=== PATIENT | male | born 1980 | race Caucasian/White ===

== ENCOUNTER 2022-10-05 01:50 | Inpatient (IN) | payer MEDICAID, OTHER ==
[~2022-10-05] VITALS: Ht 188 cm; Wt 88.5 kg
[2022-10-05] MEDS ORDERED: LORAZEPAM INJ 2 MG/ML VIAL ONE ×2 (02:06→06:39)
[2022-10-05] MEDS ORDERED: ACETAMINOPHEN ES 500 MG TABLET ONE (02:07)
--- NOTE | 2022-10-05 02:07 | NUR ---
URINE COLLECTED AND SENT TO LAB
--- NOTE | 2022-10-05 02:09 | NUR ---
BIBS FOR C/O SEIZURE, POSSIBLE FROM ALCOHOL WITHDRAW. PATIENT ALERT AND ORIENTED X3. AMBULATORY WITH NON LABORED BREATHING IN BED 12 ON MONITOR AND POX. SEEN AND EVALUATED BY MD AT TRIAGE.
[2022-10-05] MEDS: ACETAMINOPHEN ES 500 MG TABLET PO ONE ×2 (02:11→03:42)
--- NOTE | 2022-10-05 02:12 | NUR ---
COVID SWAB DONE AND SENT TO LAB
--- NOTE | 2022-10-05 02:12 | NUR ---
BLOOD COLLECTED AND SENT TO LAB
--- NOTE | 2022-10-05 02:13 | NUR ---
SEIZURE PRECAUTIONS DONE.
--- NOTE | 2022-10-05 02:13 | NUR ---
EMT AT BEDSIDE FOR EKG.
[2022-10-05] MEDS ORDERED: IV NS 0.9% 1,000 ML BAG IV ONE (02:30)
[2022-10-05] MEDS ORDERED: LORAZEPAM INJ 2 MG/ML VIAL IVP ONE (02:30)
[2022-10-05 03:27] LABS: BASOPHILS # (AUTO) 0.1 K/uL (0.0-0.2); BASOPHILS % (AUTO) 0.8 % (0.0-2.0); EOSINOPHILS % (AUTO) 2.6 % (0.0-6.0); HEMATOCRIT 33 % (39-51); HEMOGLOBIN 10.7 g/dL (13.5-17.5); LYMPHOCYTES # (AUTO) 1.5 K/uL (0.8-4.8); MEAN CORPUSCULAR HGB CONC 33 g/dl (31.0-36.0); MEAN CORPUSCULAR VOLUME 85 fL (80-96); MONOCYTES # (AUTO) 0.4 K/uL (0.1-1.30); NEUTROPHILS # (AUTO) 4.6 K/uL (1.8-8.9); NEUTROPHILS % (AUTO) 68.6 % (43.0-81.0); PLATELET COUNT (AUTO) 212 K/uL (150-450); RED BLOOD CELL COUNT(AUTO) 3.86 MIL/uL (4.5-6.0); WHITE BLOOD COUNT (AUTO) 6.7 K/uL (4.3-11.0)
[2022-10-05] MEDS ORDERED: KETOROLAC TROMETHAMINE 15 MG/ML VIAL ONE (03:30)
[2022-10-05 03:39] LABS: CALCIUM, SERUM 8.9 mg/dL (8.5-10.1); CARBON DIOXIDE 28 mmol/L (21-32); CHLORIDE 101 mmol/L (98-107); CREATININE 0.7 mg/dL (0.6-1.3); GLUCOSE 98 mg/dL (74-106); POTASSIUM 3.6 mmol/L (3.5-5.1); SODIUM SERUM 137 mmol/L (136-145); UREA NITROGEN, BLOOD 12 mg/dL (7-18)
--- NOTE | 2022-10-05 03:43 | NUR ---
PT TAKEN TO CT VIA [facility]
[2022-10-05 03:46] LABS: ALANINE AMINOTRANSFERASE 22 U/L (12-78); ALBUMIN 3.8 g/dL (3.4-5.0); ALCOHOL, BLOOD < 3 mg/dL (0-0); ALKALINE PHOSPHATASE 102 U/L (46-116); ASPARTATE AMINOTRANSFERASE 21 U/L (15-37); BILIRUBIN,DIRECT 0.1 mg/dL (0.0-0.2); BILIRUBIN,TOTAL 0.4 mg/dL (0.2-1.0); TOTAL PROTEIN, SERUM 7.3 g/dL (6.4-8.2)
--- NOTE | 2022-10-05 03:52 | NUR ---
PT RETURNED TO ER BED [address]
[2022-10-05] MEDS ORDERED: KETOROLAC TROMETHAMINE INJ 60 MG/2 ML VIAL IM ONE (04:00)
--- NOTE | 2022-10-05 06:08 | NUR ---
DR. EMMA RICO ON PHONE CALL WITH DR. FLASH RICO ADMITTING
[2022-10-05] MEDS ORDERED: ONDANSETRON HCL/PF 4 MG/2 ML VIAL IVP PRN (06:30)
[2022-10-05] MEDS ORDERED: MAGNESIUM HYDROXIDE 30 ML UDC PO PRN (06:30)
[2022-10-05] MEDS ORDERED: ZOLPIDEM TARTRATE 5 MG TABLET PO PRN (06:30)
[2022-10-05] MEDS ORDERED: KETOROLAC TROMETHAMINE INJ 30 MG/ML VIAL IV ONE (06:30)
[2022-10-05] MEDS ORDERED: MAG HYDROX/AL HYDROX/SIMETH 30 ML UDC PO PRN (06:30)
[2022-10-05] MEDS ORDERED: Z GUARD REMEDY 4 OZ OINT TP PRN (06:30)
[2022-10-05] MEDS ORDERED: LORAZEPAM INJ 2 MG/ML VIAL IV PRN (06:30)
--- NOTE | 2022-10-05 07:46 | NUR ---
got bed 113
--- NOTE | 2022-10-05 07:53 | NUR ---
ROOM 115. PT REPORT GIVEN TO AINSLEY COAMPO
--- NOTE | 2022-10-05 08:20 | NUR ---
PT TRANSFERRED TO 115 VIA [facility] ACLS PROTOCOL. WARM HANDOFF GIVEN TO AINSLEY OCAMPO.
--- NOTE | 2022-10-05 08:40 | NUR ---
rn open note PATIENT WAS TRANSFERRED FROM ER , WITH PRIMARY DIAGNOSIS OF ALCOHOL AND METHADONE WITHDRAWAL .PATIENT REPORT THAT HE HAD SEIZURES AT HOME , ON SEIZURES PRECAUTIONS .PATIENT HAS BICUSPID VALVE DISORDER , ALERT , ORIENTED TIMES 4, ANXIOUS .HAS TANIKA MIDLINE WITH 1/2 NS D5 RUNNING AT 75 ML/HR , SKIN INTACT .PATIENT IS AMBULATORY BUT REQUIRES ASSISTANCE DUE TO WEAK AND ON SEIZURES PRECAUTIONS .PATIENT IS ON ROOM AIR , TOLERATING WELL C/ O GENERALIZED PAIN MORPHINE IM ADMINISTERED .BED IS AT LOWEST POSITION , BED SIDE RAILS ARE UP , BED ALARM IS ON , CALL LIGHT WITHIN REACH , WILL CONTINUE TO MONITOR
[2022-10-05] MEDS: LORAZEPAM INJ 2 MG/ML VIAL IV PRN ×3 (08:57→18:58)
[2022-10-05] MEDS: CHLORDIAZEPOXIDE HCL 25 MG CAPSULE PO SCH ×3 (08:58→16:11)
[2022-10-05] MEDS: IV D5/0.45 NACL 1,000 ML IV PRN (09:03)
[2022-10-05] MEDS: ACETAMINOPHEN 325 MG TABLET PO PRN (11:10)
[2022-10-05] MEDS: MORPHINE SULFATE INJ 4 MG/ML DISP.SYRIN IM PRN ×2 (11:49→16:05)
[2022-10-05 12:16] VITALS: BP 144/82
[2022-10-05 16:13] VITALS: BP 135/84
[2022-10-05] MEDS ORDERED: HYDROCODONE/APAP 5/325MG TABLET PO PRN (17:00)
--- NOTE | 2022-10-05 18:28 | NUR ---
RN CLOSING NOTE PATIENT ALERT , ORIENTED TIMES 4, ANXIOUS .HAS TANIKA MIDLINE WITH 1/2 NS D5 RUNNING AT 75 ML/HR , SKIN INTACT .PATIENT IS AMBULATORY BUT REQUIRES ASSISTANCE DUE TO WEAK AND ON SEIZURES PRECAUTIONS .PATIENT IS ON ROOM AIR , TOLERATING WELL C/ O GENERALIZED PAIN MORPHINE AND ATIVAN ADMINISTERED NEEDED .ALL NEEDS WERE MET .BED IS AT LOWEST POSITION , BED SIDE RAILS ARE UP , BED ALARM IS ON , CALL LIGHT WITHIN REACH , WILL ENDORSE BENCH HAND MACHINE NURSE TO FALLOW POC.
[2022-10-05 20:00] VITALS: BP 124/77
--- NOTE | 2022-10-05 21:00 | NUR ---
INFORMED MORALES PERES PRACTICE REPRESENTATIVE THAT PT IS REQUESTING THE MORPHINE IV INSTEAD IM, PER PT MORPHINE IS NOT EFFECTIVE INTRAMUSCULAR, PER JA OK TO CHANGE INTRAVENOUS ROUTE, ORDER NOTED AND CARRIED OUT.
[2022-10-05] MEDS: MORPHINE SULFATE INJ 4 MG/ML DISP.SYRIN IV PRN (22:10)
[2022-10-05 23:33] VITALS: BP 145/79
[2022-10-06] MEDS ORDERED: MORPHINE SULFATE INJ 4 MG/ML DISP.SYRIN IV PRN
[2022-10-06] MEDS: LORAZEPAM INJ 2 MG/ML VIAL IV PRN ×5 (00:15→20:29)
[2022-10-06] MEDS: MORPHINE SULFATE INJ 4 MG/ML DISP.SYRIN IV PRN ×4 (02:09→20:19)
[2022-10-06 04:00] VITALS: BP 106/69
--- NOTE | 2022-10-06 04:40 | NUR ---
This note is to provide clarification that this patient has been medicated with ativan twice within the casino shift manager. In verifying the previous dose prior to the second administration, it was noted that the first dose did not register. The charge nurse was made aware and it was verified with the patient that he, indeed received two doses of ativan. It was scanned, but for whatever reason was not saved.
[2022-10-06 06:40] LABS: BASOPHILS % (AUTO) 0.8 % (0.0-2.0); EOSINOPHILS % (AUTO) 8.5 % (0.0-6.0); HEMATOCRIT 32 % (39-51); HEMOGLOBIN 10.4 g/dL (13.5-17.5); LYMPHOCYTES # (AUTO) 1.9 K/uL (0.8-4.8); LYMPHOCYTES % (AUTO) 36.3 % (20.0-44.0); MEAN CORPUSCULAR HGB CONC 33 g/dl (31.0-36.0); MEAN CORPUSCULAR VOLUME 86 fL (80-96); MONOCYTES # (AUTO) 0.5 K/uL (0.1-1.30); MONOCYTES % (AUTO) 9.6 % (2.0-12.0); NEUTROPHILS # (AUTO) 2.4 K/uL (1.8-8.9); NEUTROPHILS % (AUTO) 44.8 % (43.0-81.0); PLATELET COUNT (AUTO) 201 K/uL (150-450); RED BLOOD CELL COUNT(AUTO) 3.74 MIL/uL (4.5-6.0); WHITE BLOOD COUNT (AUTO) 5.2 K/uL (4.3-11.0)
[2022-10-06 06:43] LABS: CALCIUM, SERUM 8.5 mg/dL (8.5-10.1); CREATININE 0.7 mg/dL (0.6-1.3); PHOSPHORUS 5.1 mg/dL (2.5-4.9); POTASSIUM 3.9 mmol/L (3.5-5.1)
[2022-10-06 07:11] LABS: THYROID STIMULATING HORMONE 2.753 uIU/mL (0.358-3.74)
[2022-10-06 08:00] VITALS: BP 106/65
--- NOTE | 2022-10-06 08:00 | NUR ---
RN OPENING NOTE PATIENT IN BED, ORIENTED TIMES 4, PRIMARY DIAGNOSIS OF ALCOHOL AND METHADONE WITHDRAWAL. REPORTED SEIZURES AT HOME, ON SEIZURES PRECAUTIONS. PATIENT HAS A HX OF BICUSPID VALVE DISORDER, ALERT, ANXIOUS. TANIKA MIDLINE WITH 1/2 NS D5 RUNNING AT 75 ML/HR, FLUSHES WELL, SKIN INTACT, CHANGED THE DRESSING ON MIDLINE SITE. PATIENT IS AMBULATORY BUT REQUIRES ASSISTANCE DUE TO WEAKNESS. O2 98% ON ROOM, NO SOB. BED IS AT LOWEST POSITION , BED SIDE RAILS ARE UP , BED ALARM IS ON , CALL LIGHT WITHIN REACH , WILL CONTINUE TO MONITOR
[2022-10-06] MEDS: CHLORDIAZEPOXIDE HCL 25 MG CAPSULE PO SCH ×3 (08:50→16:04)
[2022-10-06] MEDS ORDERED: METH10TA2 PO (09:49)
--- NOTE | 2022-10-06 09:50 | NUR ---
PT COMPLAINED ON GENERALIZED PAIN 8 OUT OF 10. MORPHINE 4MG IV ADMINISTERED.
--- NOTE | 2022-10-06 10:29 | NUR ---
PATIENTs CONDITION ACCESSED 30 MIN AFTER MORPHINE ADMINISTRATION, NO PAIN AT THIS TIME, NO SOB. WILL CONTINUE TO MONITOR.
[2022-10-06 12:00] VITALS: BP 134/71
[2022-10-06 16:00] VITALS: BP 116/65
[2022-10-06] MEDS: IV D5/0.45 NACL 1,000 ML IV PRN (17:52)
--- NOTE | 2022-10-06 18:35 | NUR ---
GOT A PHONE PAUL FROM LAB OF THE [facility] REGARDING FINALIZED RESULT. PATIENTS RIGHT NASAL SWAB CAME OUT POSITIVE FOR MRSA. DOCTOR NOTIFIED, GOT ORDER FOR BACTROBAN OINTMENT.
--- NOTE | 2022-10-06 18:59 | NUR ---
FILLER MACHINE OPERATOR NOTE PATIENT IN BED, ALL NEEDS ATTENDED. O2 SATURATION 96% ON RA, NO SOB NOTED AT THIS TIME. BED LOCKED AND IN LOWEST POSITION, CALL LIGHT WITHIN REACH, SAFETY MEASURE IN PLACE. Addendum: 10/06/22 at 1907 by MOOKIE LAWRENCE RN ON TELE MONITOR, PATIENT HAD NORMAL SR IN 90.
--- NOTE | 2022-10-06 19:24 | NUR ---
RN OPENING NOTE; RECEIVED PT IN BED AAOX4 CARRIE WELL ON RM AIR SATTING 98%.NO SIGN SOB/DISTRESS NOTED,IV SITE ON RU ML WITH D5 1/2 NS 75ML/HR.SAFETY MEASURE IN PLACE.CALL LIGHT WITHIN REACH.WILL CONTINUE TO MONITOR.
[2022-10-06] MEDS: MUPIROCIN OINT 2% 22 GM TUBE NS SCH (20:26)
--- NOTE | 2022-10-06 20:35 | NUR ---
rn note; patient complained of generalize body pain 06/05,prn morphine 4mg,was given,pt aslo asking ativan 2mg for seizure.was given.
[2022-10-06 22:00] VITALS: BP 106/68
[2022-10-07] VITALS (8 sets, daily range): BP systolic 106–123; BP diastolic 63–81
[2022-10-07] MEDS: MORPHINE SULFATE INJ 4 MG/ML DISP.SYRIN IV PRN ×5 (01:05→23:45)
[2022-10-07] MEDS: LORAZEPAM INJ 2 MG/ML VIAL IV PRN ×4 (01:05→22:16)
--- NOTE | 2022-10-07 01:15 | NUR ---
rn note; patient complained of generalize body pain 06/05,prn morphine 4mg,was given,pt aslo asking ativan 2mg for seizure.was given.
[2022-10-07] MEDS: IV D5/0.45 NACL 1,000 ML IV PRN ×2 (04:58→20:48)
--- NOTE | 2022-10-07 06:07 | NUR ---
rn note; patient complained of generalize body pain 06/05,prn morphine 4mg,was given,pt aslo asking ativan 2mg for seizure.was given.
--- NOTE | 2022-10-07 06:17 | NUR ---
RN CLOSING NOTE; PATIENT IN BED AAOX4,ABLE TO MAKE NEEDS KNOWN, CARRIE WELL ON RM AIR,NO SIGN SOB/DISTRESS NOTED,IV SITE ON TANIKA ML WITH D5 1/2 NS 75ML/HR.DUE MEDS GIVEN ORDER,ALL NEDS ATTENDED,PT ROUTINELY ASKING MORPHINE AND ATIVAN,SAFETY MEASURE IN PLACE.CALL LIGHT WITHIN REACH.WILL ENDORSED TO NEXT SHIFT.
--- NOTE | 2022-10-07 07:36 | NUR ---
RN OPENING NOTE PATIENT IN BED, ORIENTED TIMES 4, PRIMARY DIAGNOSIS OF ALCOHOL AND METHADONE WITHDRAWAL. REPORTED SEIZURES AT HOME, ON SEIZURES PRECAUTIONS. PATIENT HAS A HX OF BICUSPID VALVE DISORDER. PT ALERT, ANXIOUS, C/O GENERALIZED PAIN, LAST MORPHINE DOSE, PER OUTSIDE SALES ACCOUNT EXECUTIVE NURSE, WAS AT 6AM. TANIKA MIDLINE WITH 1/2 NS D5 RUNNING AT 75 ML/HR, FLUSHES WELL, SKIN INTACT. PTs NOSTRIL SWAB CAME OUT POSITIVE FOR MRSA YESTERDAY, BACTROBAN OINTMENT ORDERED. PATIENT IS AMBULATORY BUT REQUIRES ASSISTANCE DUE TO WEAKNESS. O2 96% ON ROOM AIR, NO SOB. BED IS AT LOWEST POSITION , BED SIDE RAILS ARE UP , BED ALARM ON , CALL LIGHT WITHIN REACH , WILL CONTINUE TO MONITOR
[2022-10-07] MEDS: CHLORDIAZEPOXIDE HCL 25 MG CAPSULE PO SCH ×3 (09:05→17:16)
[2022-10-07] MEDS: MUPIROCIN OINT 2% 22 GM TUBE NS SCH ×2 (09:05→20:24)
--- NOTE | 2022-10-07 12:07 | NUR ---
SS Note: SS Consult requested for alcohol & bridge rehab referrals. The pt. is a 41-year-old male pt. who was admitted to [facility] due to alcohol withdrawal per EMR. Upon SS consult, the pt. is Alert & Oriented x 4 and makes good eye contact. The pt. appears unkempt. Pt. has depressed mood & affect. Pt.s speech is clear and thought process is WNL. Pt. remained calm & cooperative throughout interview. Pt. denies SI/HI and states denies hallucinations. LIZZETH explored pt.s living situation. Per pt. he resides at home [facility] [address]; TEL: [phone]]. SW explored pt.s drug & ETOH use. Pt. states he quit methadone on 10/03/2022 and states he drinks 1.75 liters of vodka daily for the past 30 years. SW offered pt. referral to rehab facility and pt. accepted resources. SW provided emotional support and provided education on alcohol dependence. Per pt. he has a Hx. of schizoaffective disorder and is non-compliant with medications prescribed to him in the past. The pt. stated he is ambulatory and independent with all his ADLs. Pt. states he does not receive any financial assistance. Plan: LIZZETH provided pt. with the following addiction resources and pt. accepted them. LIZZETH provided pt. with the following MAT resources : [facility]: [address] [place] [address] Intake hours: 5:45am9:00am, walk-ins Tuesday, Tuesday, [facility]: [address] [place] [address] Intake hours: 5:45am12:30pm, Tuesday and [facility]: [address] [place] [address] Intake hours: 8:00am2:00pm, Tuesday through Tuesday Pt. accepted the resources and stated he will use them for rehab and is still deciding if he wants to be back on Methadone. Pt. stated he would like for a cab to be called vias his insurance for transportation back home [Zenaida Samson e. [facility] [address]; TEL: [phone]].LIZZETH will notify CM. LIZZETH provided pt. witht he following addiction resources and pt. accepted them: ADDICTION RESOURCES For Drugs and Alcohol [facility] sober living Referrals For Rehabilitation once sober Address:[address] [place] [address] [facility] [address] [place] [address] Detox/residential [facility] Substance Abuse Helpline ([facility] RE[facility]AB) Outpatient, residential treatment, recovery support for youth/adults [facility] www.Six Deg[employer] of Data [facility] Teen programs for drug/alcohol education and support Yossi Duong Holt. Program for adults, sliding scale provides support and education NikkieYOOSE www.[facility].org [place]; Detox/residential treatment programs; transition to sober living Cri[facility]Help www.cri-help.org [place]; Outpatient and residential treatment programs; transition to sober living [facility] TEL: [phone] [facility] Drug Abuse [facility] [place]; Outpatient education and supportive programs for teens and adults [place] [facility] www.[facility] no.1y.org [facility]; Residential treatment and work program for females only [place] www.[facility].org [place]: Outpatient/residential treatment program for teens and young adults [facility] www.[facility].org [place] Detox, inpatient, outpatient for adults and youth [facility], [facility]. [place]; Outpatient programs and referrals to community residential programs. Alcoholics Anonymous -sfv information and meeting and scheduleswww.aa-intergroup.org Fm-Pcrr-Rizjhav https://bakari-kevin.org/ [place] support groups for family of alcoholics. Marijuana Anonymous www.madistrict6.org -SFV listing of meetings Narcotics Anonymous www.na.org SOBER LIVING RESOURCES [facility] www.soberhousing.net A non-profit agency that provides resources to recovery and sober living homes throughout [place], [place], [facility] Sober Living Homes: A Work in Progress, [facility] Recovery Advocates, [place] [facility] Womens Sober Living Homes: [facility] [phone] [place], [place] [facility] Coed Sober Living Homes: [facility]--Outpatient [facility] [place] [address] [facility] [place] [address] (Specializes in in-depth psychotherapy for emotional distress: anxiety, depression, interpersonal conflicts, life transitions, childhood abuse) [facility] [address] [place] [address] (Assist with solving problem marital difficulties, separation & divorce, aging parents, & grief, chronic & terminal illness) [facility] [address] [place] [address] (Deal with loss & grief, anxiety, marital difficulties) Homebound/Mental Health Services [address] [facility] [address] [place] [address] (Provide in-home mental services to people who are incapable of leaving their homes) Organization for Needs of the Elderly Senior Service/Resource Center [address] [place] [address] [facility] [address] [place], [place] [id number] Mental Health Services Mely Mendes [address] [place] [address] Services: Outpatient therapy for children, teens, young adults, adults, older adults, and families; Psychiatric services, medication support Psychiatric Outpatient Services [facility] Partial Hospitalization and Intensive Outpatient Program (Managed Care and [place] Only)[address] [facility] [phone] [facility] Partial Hospitalization and Outpatient [address] [place], [place] [phone] [facility] Mental Health [place] Jay[address] [facility]. [address] [place], [place] [phone] [facility] Partial Hospitalization and Outpatient Cxviten[address] [place], [phone] Crisis and Hotline Telephone Numbers 24-Hour service unless stated [place] Crisis Hotlines: [facility] Mental Health/Crisis Line........[phone] Suicide Prevention Center (24 Hours).......[phone] Suicide Prevention Crisis Center.......[phone] (24 Hours) Assaults Against Women Hotline.........302.740.6904 (24 Hours -- [facility]) Women and Children Crisis Halfway...........[phone] (24 Hours) Child Abuse Hotline............907.713.8331 [facility] of Childrens Services Rape Treatment Center (24 Hours)..........[phone] Alcoholics Anonymous (24 Hours)..........[phone] Cocaine Anonymous (24 Hours)............628.863.8896 Narcotics Anonymous (24 Hours)..........527-104-0666 Tiffany Esparza [facility] [address], [place] [address]
[2022-10-07] MEDS: ACETAMINOPHEN 325 MG TABLET PO PRN (18:07)
--- NOTE | 2022-10-07 19:17 | NUR ---
RN NOTE PATIENT REMAINS ON ALERT ORIENTED X4 VERBALLY RESPONSIVE ON ROOM AIR O2:96% NO SOB NOT ACUTE DISTRESS NOTED,ALL DUE MED GIVEN MD ORDERED,IV SITE IS ON RIGHT UPPER ARM MIDLINE,D51/2 NS 75CC/HR,KEPT CALL LIGHT WITHIN REACH,KEPT CLEAN AND DRY WILL ENDORSE NEXT COMING SHIFT FOR CONTINUATION OF CARE.
--- NOTE | 2022-10-07 19:35 | NUR ---
RN OPENING NOTE RECEIVED PATIENT IN BED; AWAKE, ALERT AND ORIENTED X 4. ON ROOM AIR; TOLERATING WELL. BREATHING EVEN AND NONLABORED. NOT IN ANY FORM OF RESPIRATORY OR CARDIAC DISTRESS NOTED. NO C/O PAIN OR DISCOMFORT AT THIS TIME. ON TELE MONITORING WITH READING OF SINUS RHYTHM HR-78 BPM. WITH MIDLINE @ RIGHT UPPER ARM 18G; PATENT AND INTACT INFUSING WITH D5 1/2 NS 1L RUNNING @ 75 ML/HR; FLUSHES WELL. ABLE TO MAKE NEEDS KNOWN. SAFETY MEASURES IMPLEMENTED: CALL LIGHT AND TABLE WITHIN REACH, SIDE RAILS UP X 2, BED IN LOWEST LOCKED POSITION. WILL CONTINUE TO MONITOR.
--- NOTE | 2022-10-07 23:45 | NUR ---
RN NOTE PATIENT COMPLAINED OF GENERALIZED PAIN 05/05. PRN MORPHINE INJ 4 MG 1 ML GIVEN IV ORDERED. WILL CONTINUE TO MONITOR AND REASSESS PT.
[2022-10-08] VITALS (8 sets, daily range): BP systolic 100–131; BP diastolic 56–80
[2022-10-08] MEDS: LORAZEPAM INJ 2 MG/ML VIAL IV PRN ×3 (02:36→17:45)
[2022-10-08] MEDS: MORPHINE SULFATE INJ 4 MG/ML DISP.SYRIN IV PRN ×2 (04:02→08:10)
--- NOTE | 2022-10-08 04:02 | NUR ---
RN NOTE PATIENT COMPLAINED OF GENERALIZED PAIN 05/05. PRN MORPHINE INJ 4 MG 1 ML GIVEN IV ORDERED. WILL CONTINUE TO MONITOR AND REASSESS PT.
--- NOTE | 2022-10-08 06:35 | NUR ---
RN CLOSING NOTE PATIENT IN BED; AWAKE, A/O X 4. STABLE ON ROOM AIR. BREATHING EQUAL AND UNLABORED. IN NO ACUTE DISTRESS. DENIES ANY PAIN OR DISCOMFORT AT THIS TIME. ON TELE MONITORING WITH READING OF SINUS RHYTHM HR-81 BPM. WITH RIGHT UPPER ARM MIDLINE 18G; PATENT AND INTACT INFUSING WITH D5 1/2 NS 1L RUNNING @ 75 ML/HR; FLUSHES WELL. ALL DUE MEDS GIVEN ORDERED. SAFETY MEASURES MAINTAINED: CALL LIGHT AND TABLE WITHIN REACH, SIDE RAILS UP X 2, BED IN LOWEST LOCKED POSITION. ENDORSED TO MORNING SHIFT FOR NEHAL.
[2022-10-08] MEDS: CHLORDIAZEPOXIDE HCL 25 MG CAPSULE PO SCH ×3 (08:11→17:50)
[2022-10-08] MEDS: MUPIROCIN OINT 2% 22 GM TUBE NS SCH ×2 (08:12→21:20)
[2022-10-08] MEDS ORDERED: CHLO25CA22 PO (11:31)
[2022-10-08] MEDS ORDERED: Hydrocodone/Apap 5/325MG PO (11:31)
--- NOTE | 2022-10-08 12:03 | NUR ---
patient very upset regarding discharge and morphine dc by md.screaming at nurses and cursing with f word.
--- NOTE | 2022-10-08 12:04 | NUR ---
dr. mehta talk to patient and explained the dc process,and instructed pt. need to wait for pain md.
--- NOTE | 2022-10-08 12:05 | NUR ---
per dr. mehta he consulted dr. galdamez but not sure when he is going to see pt.
--- NOTE | 2022-10-08 12:19 | NUR ---
librium change to bid.
[2022-10-08] MEDS ORDERED: NALOXONE HCL 0.4 MG/ML AMPUL IV PRN (12:30)
[2022-10-08] MEDS ORDERED: LORAZEPAM INJ 2 MG/ML VIAL IV ONE ×2 (12:30→13:30)
[2022-10-08] MEDS: oxyCODONE/APAP (5/325 MG) 1 UDTAB TABLET PO PRN ×3 (12:32→20:05)
--- NOTE | 2022-10-08 13:25 | NUR ---
RN NOTE bP RECHECKED 120/80 , HR 78
--- NOTE | 2022-10-08 13:33 | NUR ---
PAIN MEDS NOT EFFECTIVE PER DR. CORTEZ PAIN MD WILL COME SEE PTLuz CHRISTINE,ONE DOSE ATIVAN GIVEN PER ..
--- NOTE | 2022-10-08 13:43 | NUR ---
PER DR. DANA TUCKER WILL SEE PATIENT TONITE.
[2022-10-08] MEDS: oxyCODONE IR immediate release 5 MG PO SCH ×2 (13:47→20:00)
--- NOTE | 2022-10-08 16:37 | NUR ---
patient complaining about cardiac diet,dr. mehta notified change it to regular.
[2022-10-08] MEDS ORDERED: oxyCODONE IR immediate release 5 MG PO SCH (18:00)
--- NOTE | 2022-10-08 19:10 | NUR ---
pt is alert, oriented x 4, pt is very aggresive more then haf of the day, yelling and requested foods, ativan, pain medication, given 1 morphin, 2 ativan, 2 percoset, 1 oxycodon ir, and 2 lunches, 2 snacks, after that he is quiet, and had dinner, D5 1/2 ns 75ml/h, PT eval and OT eval today, v/s is ok, call light within reach, lowest placement of bed, wheels of bed locked, 2 side rails up, pt has no any discomfort or distress noted
--- NOTE | 2022-10-08 19:30 | NUR ---
noc rn opening note received patient woke up at this time. a/ox3-4. no s/s of apparent distress on room air. c/o pain-- will manage pain. r.ua midline running D5 1/2 ns @75mls/hr. call light within reach. safety in place. will continue with plan of care for patient.
--- NOTE | 2022-10-08 20:28 | NUR ---
noc rn note OXY IR non-admin. Just given percocet-5 2 UDTAB. will re-assess.
[2022-10-09] MEDS: oxyCODONE/APAP (5/325 MG) 1 UDTAB TABLET PO PRN ×4 (00:10→19:43)
--- NOTE | 2022-10-09 00:13 | NUR ---
noc rn note pulled OXY IR 2 tabs instead of percocet. returned unopened tab in the omnicell with RNNAHID to witness.
--- NOTE | 2022-10-09 00:18 | NUR ---
noc rn note patient c/o 8/10 pain in his neck and spine. given Percocet 5 2 UDTAB as ordered PRN. will re-assess.
--- NOTE | 2022-10-09 01:25 | NUR ---
alfred rn note not even an hour that norco was given, patient complaining that the medication made his pain worst and now asking for codeine. when I said that I'm going to have to report to the Doctor so they can order it inpatient, patient said "Don't tell the Doctor" and asking if someone else could put in the order, exclaiming "Peter! can't anyone else just put in the order!". on Further assessment, asked patient if he usually takes codeine at home. per patient and to quote "My takes some for her back" "The Doctor said I could take some for my Right knee". when asked how many mg the codeine he takes at home that his takes he said, "I don't know" "IT's usually the smal tablet". and per patient "Only one". reported incident to charge nurse. Addendum: 10/09/22 at 0237 by TORIBIO MODI RN disregard. wrong patient.
[2022-10-09] MEDS: oxyCODONE IR immediate release 5 MG PO SCH ×2 (02:10→07:58)
--- NOTE | 2022-10-09 03:24 | NUR ---
noc rn note not even an hour after OXY IR, patient adamant in getting a different pain medication. per patient "It doesn't work" c/o 8/10 pain everytime on his neck and spine. I told patient the percocet is going to be due an hour from now since I gave it to him at midnight and it's Q4HR. Per patient the percocet doesn't work as well and to quote "The percocet doesn't even work" "surely, there must be a way to get another one". I told patient that I'm going to try to get an order from the Doctor but there is no guarantee that they would order anymore since he is already in 2 pain medication. Messaged vision impaired teacher DENIS Loja about the situation and made Patient aware that there is already a pending pain management consult in place.
[2022-10-09] MEDS ORDERED: LORAZEPAM 0.5 MG TABLET PO ONE (04:00)
--- NOTE | 2022-10-09 04:21 | NUR ---
noc rn note ONE TIME order of Ativan 0.5 mg PO non-administered. per patient and to quote "I don't want it. WTH prescribing me baby dose of Ativan". Made patient are that it is a one time order. Given Percocet 5 <2UDTAB for 8/10 pain. will re-assess.
[2022-10-09 05:00] VITALS: BP 103/66
--- NOTE | 2022-10-09 07:25 | NUR ---
noc rn closing note patient in bed with eyes closed, easy to arouse. no s/s of apparent distress in room air. pain managed with medications. IV fluid on standby per patient request, all needs attended. all scheduled medications administered. call light within reach. safety in place. Endorsed to AINSLEY scott for continuity of patient care.
[2022-10-09 08:00] VITALS: BP 122/69
[2022-10-09] MEDS: CHLORDIAZEPOXIDE HCL 25 MG CAPSULE PO SCH ×2 (08:51→17:03)
[2022-10-09] MEDS: MUPIROCIN OINT 2% 22 GM TUBE NS SCH ×2 (08:51→20:45)
--- NOTE | 2022-10-09 14:19 | NUR ---
pt's dressing on micline on right upper arm, placement is something, [id number] beeping, his ns 75ml/h is continuously stopped, changed dressing and a little changed middline and starting hydration continuously, state lock is not fit, so it put under the dressing on the line for no moving, pt was tolerated very well, and received new order from pain management entered order and carry out his order for pt's pain menagement, pt is happy pt looks more comfortable today and calm and possible conversation and instructed pt, why pt need hydration and keep hydration for much medication in his body, and he is better his status
[2022-10-09 16:00] VITALS: BP 112/76
[2022-10-09] MEDS: METHADONE HCL 10 MG TABLET PO SCH (17:05)
--- NOTE | 2022-10-09 19:29 | NUR ---
pt is asleep now, he took methadone 10mg after 5pm and he feels ok and happy, given instruction, and changed dressing on picc line, a little redness, on middle line center, and try to keep iv hydration, and pt id calm and better today, and no any distress or discomfort noted, no any s/s of side effect or any adverse reaction noted, call light within reach, lowest placement of bed, wheels locked, 3 side ralis up, instructed pt precaution of fall
--- NOTE | 2022-10-09 19:34 | NUR ---
MS RN NOTES RECEIVED ON BED,ON SITTING POSITION,A/O X4,ABLE TO VERBALIZED NEEDS,PRESENT IVF INFUSING WELL ON TANIKA MIDLINE VIA IV PUMP.WILL MONITOR FOR ETOH WITHDRAWAL.CALL LIGHT IN REACH,NEEDS ANTICIPATED.
[2022-10-09 21:00] VITALS: BP 109/57
[2022-10-10] MEDS: oxyCODONE/APAP (5/325 MG) 1 UDTAB TABLET PO PRN ×5 (00:03→22:16)
--- NOTE | 2022-10-10 00:03 | NUR ---
MS1 RN NOTES AWAKE,HAVING PAIN 8/10 ON PAIN SCALE.PERCOCET 5/325MG,2 TABS PO GIVEN ORDERED.VITAL SIGNS STABLE.
[2022-10-10] MEDS: IV D5/0.45 NACL 1,000 ML IV PRN ×2 (03:35→17:35)
--- NOTE | 2022-10-10 04:29 | NUR ---
MS1 RN NOTES AWAKE,HAVING PAIN ON MID LOWER BACK 8/10 ON PAIN SCALE.PERCOCET 5/325,2 TABS PO GIVEN ORDERED.
--- NOTE | 2022-10-10 06:35 | NUR ---
MS1 RN NOTES NO ALCOHOL WITHDRAWAL NOTED.KEPT WARM NS .CALL LIGHT N REACH,NEEDS ATTENDED
--- NOTE | 2022-10-10 07:10 | NUR ---
RN OPENING NOTE RECEIVED PATIENT IN BED; AWAKE, ALERT AND ORIENTED X 4. ON ROOM AIR; TOLERATING WELL. BREATHING EVEN AND NONLABORED. NOT IN ANY FORM OF RESPIRATORY OR CARDIAC DISTRESS . NO C/O PAIN OR DISCOMFORT AT THIS TIME. ON TELE MONITORING WITH READING OF SINUS RHYTHM HR-78 BPM. WITH MIDLINE @ RIGHT UPPER ARM 18G; PATENT AND INTACT INFUSING WITH D5 1/2 NS 1L RUNNING @ 75 ML/HR; FLUSHES WELL. ABLE TO MAKE NEEDS KNOWN. SAFETY MEASURES IMPLEMENTED: CALL LIGHT AND TABLE WITHIN REACH, SIDE RAILS UP X 2, BED IN LOWEST LOCKED POSITION. WILL CONTINUE TO MONITOR.
[2022-10-10 08:00] VITALS: BP 111/69
[2022-10-10] MEDS: MUPIROCIN OINT 2% 22 GM TUBE NS SCH ×2 (09:11→20:12)
[2022-10-10] MEDS: METHADONE HCL 10 MG TABLET PO SCH ×2 (09:11→17:07)
[2022-10-10] MEDS: CHLORDIAZEPOXIDE HCL 25 MG CAPSULE PO SCH (09:11)
--- NOTE | 2022-10-10 09:30 | NUR ---
patient stated that c/o left arm numbness since last night ,Notified to and stat CT of head ordered and carried out
[2022-10-10 16:00] VITALS: BP 105/64
--- NOTE | 2022-10-10 19:47 | NUR ---
MS RN CLOSING NOTES RECEIVED ON BED,ON SITTING POSITION,A/O X4,ABLE TO VERBALIZED NEEDS,PRESENT IVF INFUSING WELL ON TANIKA MIDLINE VIA IV PUMP.WILL MONITOR FOR ETOH WITHDRAWAL.CALL LIGHT IN REACH,NEEDS ANTICIPATED.
--- NOTE | 2022-10-10 19:47 | NUR ---
MS RN CLOSING NOTES: patient in bed with eyes closed, easy to arouse. no s/s of apparent distress in room air. pain managed with medications. IV fluid on standby per patient request, all needs attended. all scheduled medications administered. call light within reach. safety in place. Endorsed to AINSLEY scott for continuity of patient care.
--- NOTE | 2022-10-10 19:55 | NUR ---
RN OPENING NOTES RECEIVED PT IN BED, AWAKE, WATCHING TV. AOx4. ON RA AND TOLERATING WELL. NO SOB NOTED. NO S/SX OF RESPIRATORY DISTRESS NOTED. IV ACCESS IN TANIKA MIDLINE RUNNING D5 1/2 NS @ 75 ML/HR. SAFETY PRECAUTIONS IN PLACE: BED IN LOWEST, LOCKED POSITION, SIDERAILS UPx2, AND BRAKES ON. TABLE AND CALL LIGHT WITHIN REACH. ALL NEEDS MET AT THIS TIME.
[2022-10-10] MEDS: LORAZEPAM INJ 2 MG/ML VIAL IV PRN (20:11)
--- NOTE | 2022-10-10 20:12 | NUR ---
RN NOTES ADMINISTERED ATIVAN FOR ANXIETY PER PT REQUEST. VS WNL.
[2022-10-10 21:00] VITALS: BP 108/58
--- NOTE | 2022-10-10 22:16 | NUR ---
RN NOTES ADMINISTERED PERCOCET FOR PAIN PER MD ORDER. VS WNL.
--- NOTE | 2022-10-10 22:23 | NUR ---
RN NOTE WHILE OPENING PACKAGE OF PERCOCET TO ADMINISTER TO PATIENT, PERCOCET FELL TO FLOOR. WASTED WITH RN, STEVO, IN PYXIS. REMOVED 1 MORE TABLET OF PERCOCET TO FULFILL ORDER OF 2 TABLETS OF 5/325 mg (oxyCODONE/APAP).
[2022-10-11] MEDS: oxyCODONE/APAP (5/325 MG) 1 UDTAB TABLET PO PRN ×5 (02:12→23:08)
--- NOTE | 2022-10-11 02:12 | NUR ---
RN NOTES ADMINISTERED PERCOCET FOR PAIN PER MD ORDER. VS WNL.
--- NOTE | 2022-10-11 02:57 | NUR ---
RN NOTES PATIENT COMPLAINING OF PAIN AND SAYS "IT (NECK) HURTS MORE TONIGHT. IT'S KEEPING ME AWAKE." EDUCATED PATIENT THAT HE MAY HAVE TO WAIT LONGER FOR PAIN MEDICATION TO TAKE EFFECT. REQUESTED METHADONE BUT PT WAS MADE AWARE THAT HE ONLY HAS METHADONE SCHEDULED DURING THE DAY. PATIENT ASKED "WILL THE SHOT I GOT EARLIER HELP?" EDUCATED PT THAT ATIVAN (SHOT HE GOT EARLIER) IS FOR WITHDRAWAL SYMPTOMS NOT FOR PAIN MANAGEMENT. OFFERED PATIENT WARM BLANKET OR WARM PACK FOR NECK BUT HE REFUSED. CHARGE NURSE AWARE.
[2022-10-11 05:00] VITALS: BP 107/71
[2022-10-11] MEDS: IV D5/0.45 NACL 1,000 ML IV PRN (06:13)
--- NOTE | 2022-10-11 06:46 | NUR ---
RN CLOSING NOTES PT IN BED, AWAKE, WATCHING TV. AOx4. ON RA AND TOLERATING WELL. NO SOB NOTED. NO S/SX OF RESPIRATORY DISTRESS NOTED. IV ACCESS IN TANIKA MIDLINE RUNNING D5 1/2 NS @ 75 ML/HR. ALL ORDERS CARRIED OUT. ALL NEEDS MET. PT KEPT CLEAN AND DRY. TREATED PAIN THROUGHOUT SHIFT. SAFETY PRECAUTIONS IN PLACE: BED IN LOWEST, LOCKED POSITION, SIDERAILS UPx2, AND BRAKES ON. TABLE AND CALL LIGHT WITHIN REACH. WILL ENDORSE TO ONCOMING SHIFT FOR NEHAL.
--- NOTE | 2022-10-11 07:00 | NUR ---
MS RN OPENING NOTES: RECEIVED PT IN BED ASLEEP, EAILY AROUSED WITH STIMULI. PT A/O X 4. NO SOB OR CARDIAC DISTRESS NOTED, DENIES PAIN AT THIS TIME. IV ACCESS ON TANIKA MIDLINE PATENT, INTACT AND INFUSING D5 1/2 NS 1L@ 75ML/HR. SAFETY MEASURES MAINTAINED: BED LOCKED AND IN LOWEST POSITION, SIDE RAILS UP X 2 CALL LIGHT IN EASY REACH FOR HELP. WILL MONITOR PT ACCORDINGLY.
[2022-10-11] MEDS: MUPIROCIN OINT 2% 22 GM TUBE NS SCH ×2 (09:18→20:39)
[2022-10-11] MEDS: METHADONE HCL 10 MG TABLET PO SCH ×2 (09:18→16:33)
[2022-10-11] MEDS ORDERED: OXYC1TAB8 PO (11:16)
--- NOTE | 2022-10-11 12:18 | NUR ---
DISCHARGE PLANNING: Per pt. to DC tomorrow 10/12/2021 back to [facility] [[address] [place] [id number]] as pt. states he does not have a [place] to his halfway and today is a Holiday so no staff is available. Pt. will be provided taxi transport per CM. LIZZETH met with pt. at bed side to provide clothing and homeless resources. The pt. accepted resources and signed homeless waiver which was placed in pt.'s chart. Pt. will use Medication assisted treatment for Suboxone(see previous SS note) and homeless resources as needed. Pt. states there are case management services in his halfway which may help him obtain another ID card. Pt. states he receives mental health services at a community mental health near his residence and could not provide name of it. LIZZETH discussed DC plan with Dianna RICO and Manuel GUPTA.
[2022-10-11 13:00] VITALS: BP 110/70
--- NOTE | 2022-10-11 18:53 | NUR ---
MS RN CLOSING NOTES: PT IN BED AWAKE. PT A/O X 4. NO SOB OR CARDIAC DISTRESS NOTED, DENIES PAIN AT THIS TIME, ON PAIN MANAGEMENT ORDERED. IV ACCESS ON TANIKA MIDLINE PATENT, INTACT AND INFUSING D5 1/2 NS 1L@ 75ML/HR. SAFETY MEASURES MAINTAINED: BED LOCKED AND IN LOWEST POSITION, SIDE RAILS UP X 2 CALL LIGHT IN EASY REACH FOR HELP. WILL MONITOR PT ACCORDINGLY. ENDORSED TO ENGINEERING TEST MECHANIC RN FOR NEHAL.
--- NOTE | 2022-10-11 19:29 | NUR ---
MS RN OPENING NOTES: PT IN BED AWAKE. PT A/O X 4. NO SOB OR CARDIAC DISTRESS NOTED, DENIES PAIN AT THIS TIME, ON PAIN MANAGEMENT ORDERED. HOWEVER REPORTING WITHDRAWAL SYMPTOMS REQUESTING PRN ATIVAN WILL ADMINISTER. IV ACCESS ON TANIKA MIDLINE PATENT, INTACT AND INFUSING D5 1/2 NS 1L@ 75ML/HR. SAFETY MEASURES MAINTAINED: BED LOCKED AND IN LOWEST POSITION, SIDE RAILS UP X 2 CALL LIGHT IN EASY REACH FOR HELP.
[2022-10-11] MEDS: LORAZEPAM INJ 2 MG/ML VIAL IV PRN (19:31)
[2022-10-11 21:00] VITALS: BP 98/58
--- NOTE | 2022-10-11 23:08 | NUR ---
rn note pt requested percocet for pain 8/10 tolerated well. pt also requested ativan be given at the same time .educated pt regarding risk of administering those two medications together. pt trying to rationalized administration of meds together. after further discussion pt agreed to try pain medication first and see how he feels in a few hours.
[2022-10-12] MEDS: LORAZEPAM INJ 2 MG/ML VIAL IV PRN (00:55)
--- NOTE | 2022-10-12 01:01 | NUR ---
RN NOTE PT REPORTING TREMORS PRN ATIVAN GIVEN TOLERATED WELL.
[2022-10-12 01:06] VITALS: BP 136/84
[2022-10-12 04:49] VITALS: BP 111/63
[2022-10-12 05:08] VITALS: BP 111/63
--- NOTE | 2022-10-12 06:30 | NUR ---
RN NOTE PT FOR D/C THIS MORNING. PT AWARE. PAIN MANAGEMENT PROVIDED DURING SHIFT ALL NEEDS MET. WILL ENDORSE TO DAY SHIFT NURSE.
--- NOTE | 2022-10-12 07:17 | NUR ---
COSMETICS AND TOILETRIES SALESPERSON OPENING NOTES: RECEIVED PATIENT IN BED, AWAKE, ALERT, ORIENTED X 4. NO RESPIRATORY DISTRESS NOTED, BREATHING EVEN AND UNLABORED WITH OXYGEN SATURATION OF 96% ON RA. HAS IV ACCESS ON RIGHT UPPER ARM MIDLINE, SALINE LOCK, INTACT, PATENT AND FLUSHES WELL, NO S/S INFILTRATION. NO C/O PAIN OR DISCOMFORT AT THIS TIME. ALL SAFETY MEASURES IN PLACE, BED LOCKED AND IN LOWEST POSITION. CALL LIGHT WITHIN REACH. PATENT IS GOING TO BE DISCHARGED TODAY AND WILL HAVE ALL THE PAPERS READY FOR THE PATIENT.
[2022-10-12 08:00] VITALS: BP 113/79
[2022-10-12] MEDS: METHADONE HCL 10 MG TABLET PO SCH (08:07)
--- NOTE | 2022-10-12 08:25 | NUR ---
CALLED TO ARRANGE [facility] TRANSPORTATION FOR THE PATIENT TO A PRISON @ THE [address]ESS [id number] [place] [address] PER SERVICER. CALLED , SPOKE WITH ERIBERTO AND SAID THAT THE ETA MAY BE 3-4 HOURS, GAVE TRANSPORT NUMBER [id number]. PATIENT INFORMED AND WILL TRY TO SEE IF HE CAN WAIT THAT LONG.
[2022-10-12] MEDS: MUPIROCIN OINT 2% 22 GM TUBE NS SCH (08:43)
--- NOTE | 2022-10-12 10:50 | NUR ---
TRANSPORTATION HAS NOT ARRIVED YET, PATIENT REFUSED TO WAIT ANY LONGER AND STATED THAT HE WANTED TO LEAVE AND IF A TAXI VOUCHER CAN BE ARRANGED FOR HIM. PATIENT DECLINED TO USE THE BUS BECAUSE HE MAY NOT BE ABLE TO ARRIVE AT THE LOCATION. SPOKE WITH WELLNESS COORDINATOR AND APPROVED A TAXI VOUCHER. PATIENT INFORMED AND AGREED TO LEAVE. DISCHARGE PAPER WORK HANDED TO THE PATIENT
--- NOTE | 2022-10-12 10:56 | NUR ---
patient provided with taxi voucher ,discharge ambulaotry,alert oriented.iv removed discharge instruction given.dc with taxi voucher number [id number].
== END 2022-10-12 11:18 | disposition home or self-care (01) | DRG 53 ==
LOC: ER 01:57 → TRANSITION 07:32 → TELE1 07:59 → MEDSG1 10-08 11:35
PROVIDERS: ADMIT Internal Medicine; ATTEND Internal Medicine
PROC: 05H933Z Insertion of Infusion Device into Right Brachial Vein, Percutaneous Approach (ICD-10-PCS; principal; 2022-10-05)
DX: G40.509 Epileptic seizures related to external causes, not intractable, without status epilepticus (principal); Q23.1 Congenital insufficiency of aortic valve; F10.239 Alcohol dependence with withdrawal, unspecified; Y90.0 Blood alcohol level of less than 20 mg/100 ml; Z20.822 Contact with and (suspected) exposure to COVID-19; F11.23 Opioid dependence with withdrawal
CPT/HCPCS: 36410; 36415; 70450-TC; 72050-TC; 80048-TC; 80076-TC; 83735-TC; 84100-TC; 84443-TC; 85025-TC; 87081-TC; 95819-TC; 97112-TC; 97116-TC; 97530-TC; C9803; G0378; G0480; J1885; J2060; J2270; J3490; J7030